=== PATIENT | female | born 1995 | race American Indian/Alaskan Native ===

== ENCOUNTER 2017-07-04 01:34 | Emergency (ER) | payer OTHER ==
[2017-07-04 02:46] VITALS: BP 112/67
[2017-07-04] MEDS ORDERED: TYLENOL ONE (02:51)
[2017-07-04] MEDS ORDERED: TYLENOL PO ONE (02:52)
[2017-07-04 04:24] LABS: Bilirubin,Urine NEG (Negative); Blood,Urine NEG (Negative); Color,Urine Yellow (Yellow); Mucus,Urine FEW /HPF; Nitrite,Urine NEG (Negative); Protein,Urine <15 mg/dL mg/dL (Negative)
--- NOTE | 2017-07-04 04:26 | Emergency Department Report ---
HPI - General Chief Complaint: Fever Time Seen by Provider: 07/04/17 04:25 - HPI HPI: This is a 22 -year-old female with a history of asthma presents to ED complaining of intermittent dry cough for the past days. Patient states her asthma usually flares up with Bad weather. Patient states she takes albuterol inhalers and has a nebulizer machine at home as needed for attacks. Patient states she's noticed a fever since yesterday. Patient denies chills, nausea, vomiting, abdominal pain, shortness of breath, chest pain, dizziness, headache or any other problems. ED Past Medical Hx - Past Medical History Previous Medical History?: Yes Hx Asthma: Yes - Surgical History Past Surgical History?: No - Social History Smoking Status: Former Smoker Substance Use Type: Alcohol, Marijuana - Medications Home Medications: Home Medications Medication Instructions Recorded Confirmed Last Taken Type Acetaminophen [Acetaminophen 8 650 mg PO Q6H #30 tablet.er 07/04/17 Unknown Rx Hour] Azithromycin [Zithromax] 250 mg PO DAILY #6 tablet 07/04/17 Unknown Rx Benzonatate [Tessalon Perles] 100 mg PO Q8HR #20 capsule 07/04/17 Unknown Rx guaiFENesin [Robitussin] 200 mg PO Q6HR #80 ml 07/04/17 Unknown Rx ED Review of Systems ROS: Stated complaint: ASTHMA; FEVER Other details as noted in HPI Physical Exam - Physical Exam Vital Signs: Vital Signs 07/04/17 07/04/17 02:39 02:55 Temperature 100 F H Pulse Rate 115 H Respiratory 18 18 Rate Blood Pressure 112/67 O2 Sat by Pulse 99 Oximetry Physical Exam: GENERAL: Alert and oriented x3, no apparent distress, Normal Gait, atraumatic. HEAD: Head is normocephalic and a-traumatic. NOSE: Nose symetrical, Nontender,Nares appeared normal. MOUTH:Mouth is well hydrated and without lesions. Tonsils nonerythematous or swollen, Uvula midline, Tongue not elevated. Mucous membranes are moist. Posterior pharynx clear, no exudate or lesions. Patent airways. NECK: Supple. Non edematous, No lymphadenopathy or thyromegaly. No C-spine tenderness LUNGS: Symetrical with respiration, mild wheezing, no rales or crackles, CTAB. No use of accessory muscles HEART: S1, S2 present, regular rate and rhythm without murmur, no rubs, no gallops. Non tender to palpation NEUROLOGIC: The patient is cooperative with no focal neurologic deficits. Cranial nerves SKIN: Warm and dry, No lesions, No ulceration or induration present. ED Course Vital Signs 07/04/17 07/04/17 02:39 02:55 Temperature 100 F H Pulse Rate 115 H Respiratory 18 18 Rate Blood Pressure 112/67 O2 Sat by Pulse 99 Oximetry ED Medical Decision Making - Medical Decision Making 22-year-old presents with bronchitis with asthma. ED course: Patient received prednisone and albuterol treatment in ED. Vital signs are normal. Patient is in no acute or respiratory distress. Patient had an uneventful ED stay. Patient sent home with antibiotics for prophylaxis. She is speaking in normal sentences. She is resting in the ED room comfortably I discussed the patient will follow up with her primary care physician. Continue the use of medication at home as needed Fever resolved during her ED stay. I discussed the patient and she has any worsening symptoms to return to ED immediately. Patient is satting on 99% room air. Critical care attestation.: If time is entered above; I have spent that time in minutes in the direct care of this critically ill patient, excluding procedure time. ED Disposition Clinical Impression: Bronchitis Asthma Qualifiers: Asthma severity: mild Asthma persistence: intermittent Asthma complication type : uncomplicated Qualified Code(s): J45.20 - Mild intermittent asthma, uncomplicated Disposition: - TO HOME OR SELFCARE Is pt being admited?: No Does the pt Need Aspirin: No Condition: Stable Instructions: Asthma (ED), Acute Bronchitis (ED), Chronic Bronchitis (ED) Additional Instructions: Make sure to follow up with the primary care physician as discussed. Take all your medications as you've been prescribed. If you have any worsening symptoms or develop new symptoms please return to ED immediately. Prescriptions: Acetaminophen [Acetaminophen 8 Hour] 650 mg PO Q6H #30 tablet.er Azithromycin [Zithromax] 250 mg PO DAILY #6 tablet Benzonatate [Tessalon Perles] 100 mg PO Q8HR #20 capsule guaiFENesin [Robitussin] 200 mg PO Q6HR #80 ml Referrals: PRIMARY CARE, [Primary Care Provider] - 3-5 Days Forms: Accompanied Note, Work/School Release Form(ED) Time of Disposition: 05:25
[2017-07-04 04:27] LABS: HCG Qualitative,Urine Negative (Negative)
[2017-07-04] MEDS ORDERED: PROVENTIL IH ONE (04:52)
[2017-07-04] MEDS ORDERED: DELTASONE PO ONE (04:52)
== END 2017-07-04 06:10 | disposition home or self-care (01) ==
LOC: ED 01:34
DX: J45.20 Mild intermittent asthma, uncomplicated (principal); J40 Bronchitis, not specified as acute or chronic; Z87.891 Personal history of nicotine dependence; F12.10 Cannabis abuse, uncomplicated
CPT/HCPCS: 81001; 81025; 94640; 99283; J7512

== ENCOUNTER 2018-12-07 22:16 | Emergency (ER) | payer OTHER ==
[2018-12-08 00:22] LABS: HCG Qualitative,Urine Negative (Negative)
[2018-12-08 01:53] VITALS: BP 119/61
--- NOTE | 2018-12-08 02:16 | XRay Report ---
PROCEDURE: Chest. TECHNIQUE: PA and lateral chest radiographs were obtained. HISTORY: Chest pain. COMPARISONS: None. FINDINGS: The heart and mediastinum appear normal. The lungs are clear and well expanded. There are no pleural effusions. The soft tissues are unremarkable. There is a mild thoracolumbar scoliosis. IMPRESSION: No evidence of acute disease. This document is electronically signed by Victor Hugo Morton MD., December 08 2018 02:14:37 AM ET
[2018-12-08] MEDS ORDERED: IBUPROFEN PO ONE (02:25)
[2018-12-08] MEDS ORDERED: PEPCID PO ONE (02:25)
--- NOTE | 2018-12-08 02:29 | Emergency Department Report ---
ED Chest Pain HPI - General Chief Complaint: Chest Pain Stated Complaint: CHEST/ABD PAIN Time Seen by Provider: 12/08/18 01:47 Source: patient, RN notes reviewed Mode of arrival: Ambulatory Limitations: No Limitations - History of Present Illness Initial Comments: This is a pleasant 23-year-old female. The patient is not known to this provider previously. She does not have any chronic medical with perhaps the exception of asthma or reactive airway disease. Patient presents to the emergency room with the complaint of nontraumatic central chest wall pain. The pain is intermittent and present for the past 2 days. It radiates to the patient's "left boob." The pain is achy, and increases with palpation and decreases with rest, and it decreases with ibuprofen. The patient currently denies headache, neck pain, abdominal pain, exertional shortness of breath, vomiting, diaphoresis, leg pain, leg swelling. She denies DVT, pulmonary embolism risk factors, with the exception of recent road trip last month to [place], where she reports that she took frequent gas brakes and better rate. There is no shortness of breath, and there is no post erior leg pain, leg swelling. MD Complaint: chest pain -: Gradual, days(s) Onset: during rest Pain Location: other Pain Radiation: other Severity scale (0 -10): 9 Quality: aching Consistency: intermittent Improves With: other Worsens With: other Context: recent travel re: denies: nausea, vomting, diaphoresis, dyspnea, sense of impending doom Other Symptoms: denies: cough, fever, syncope, rash, acid taste in mouth, leg swelling, palpitations, burping Aspirin use within the Past 7 Days: (0) No - Related Data On Oral Contraceptives: No Previous Rx's Medication Instructions Recorded Last Taken Type Acetaminophen [Acetaminophen 8 650 mg PO Q6H #30 tablet.er 07/04/17 Unknown Rx Hour] Azithromycin [Zithromax] 250 mg PO DAILY #6 tablet 07/04/17 Unknown Rx Benzonatate [Tessalon Perles] 100 mg PO Q8HR #20 capsule 07/04/17 Unknown Rx guaiFENesin [Robitussin] 200 mg PO Q6HR #80 ml 07/04/17 Unknown Rx Famotidine [Pepcid] 20 mg PO BID #30 tablet 12/08/18 Unknown Rx Ibuprofen [Motrin] 600 mg PO Q8H PRN #30 tablet 12/08/18 Unknown Rx Allergies Allergy/AdvReac Type Severity Reaction Status Date / Time No Known Allergies Allergy Verified 07/04/17 02:58 Heart Score - HEART Score History: Slightly suspicious EKG: Normal Age: < 45 Risk factors: No known risk factors Troponin: < normal limit (troponin is not sent, however, the patient in my pain is very low risk otherwise, does not require laboratory evaluation) HEART Score: 0 - Critical Actions Critical Actions: 0-3 pts:0.9-1.7%risk of adverse cardiac event.Candidate for discharge ED Review of Systems ROS: Stated complaint: CHEST/ABD PAIN Other details as noted in HPI Comment: All other systems reviewed and negative Cardiovascular: chest pain ED Past Medical Hx - Past Medical History Previous Medical History?: Yes Hx Asthma: Yes - Surgical History Past Surgical History?: No - Social History Smoking Status: Never Smoker Substance Use Type: None - Medications Home Medications: Home Medications Medication Instructions Recorded Confirmed Last Taken Type Acetaminophen [Acetaminophen 8 650 mg PO Q6H #30 tablet.er 07/04/17 Unknown Rx Hour] Azithromycin [Zithromax] 250 mg PO DAILY #6 tablet 07/04/17 Unknown Rx Benzonatate [Tessalon Perles] 100 mg PO Q8HR #20 capsule 07/04/17 Unknown Rx guaiFENesin [Robitussin] 200 mg PO Q6HR #80 ml 07/04/17 Unknown Rx Famotidine [Pepcid] 20 mg PO BID #30 tablet 12/08/18 Unknown Rx Ibuprofen [Motrin] 600 mg PO Q8H PRN #30 tablet 12/08/18 Unknown Rx ED Physical Exam - General Limitations: No Limitations General appearance: alert, in no apparent distress - Head Head exam: Present: atraumatic, normocephalic - Eye Eye exam: Present: normal appearance, EOMI. Absent: nystagmus - ENT ENT exam: Present: normal exam, normal orophraynx, mucous membranes moist, normal external ear exam - Neck Neck exam: Present: normal inspection, full ROM. Absent: tenderness, meningismus - Respiratory Respiratory exam: Present: normal lung sounds bilaterally, chest wall tenderness, other (chaperoned by factory helper Klever Vizcarra). Absent: respiratory distress, wheezes, rales, rhonchi, stridor - Cardiovascular Cardiovascular Exam: Present: regular rate, normal rhythm, normal heart sounds. Absent: bradycardia, tachycardia, irregular rhythm, systolic murmur, diastolic murmur, rubs, gallop - GI/Abdominal GI/Abdominal exam: Present: soft. Absent: distended, tenderness, guarding, candy ound, rigid, pulsatile mass - Extremities Exam Extremities exam: Present: normal inspection, full ROM, other (2+ pulses noted in the bilateral upper, lower extremities. Compartments soft. No long bony tenderness. The pelvis is stable.). Absent: pedal edema, joint swelling, calf tenderness - Back Exam Back exam: Present: normal inspection, full ROM. Absent: tenderness, CVA tenderness (R), CVA tenderness (L), paraspinal tenderness, vertebral tenderness - Neurological Exam Neurological exam: Present: alert, oriented X3, normal gait, other (Extraocular movements intact. Tongue midline. No facial droop. Facial sensation intact to light touch in the V1, V2, V3 distribution bilaterally. 5 and 5 strength in 4 extremities.. Sensation is intact to light touch in 4 extremities.). Absent: motor sensory deficit - Psychiatric Psychiatric exam: Present: normal affect, normal mood - Skin Skin exam: Present: warm, dry, intact, normal color. Absent: rash ED Course Vital Signs 12/07/18 12/08/18 22:47 01:50 Temperature 98.7 F 99.4 F Pulse Rate 83 81 Respiratory 18 19 Rate Blood Pressure 109/64 Blood Pressure 119/61 [Right] O2 Sat by Pulse 100 100 Oximetry MAYNOR score - Maynor Score Age > 65: (0) No Aspirin use within the Past 7 Days: (0) No 3 or more CAD Risk Factors: (0) No 2 or more Angina events in past 24 hrs: (0) No Known CAD with more than 50% Stenosis: (0) No Elevated Cardiac Markers: (0) No ST Deviation Greater than 0.5mm: (0) No MAYNOR Score: 0 ED Medical Decision Making - Lab Data Vital Signs 12/07/18 12/08/18 22:47 01:50 Temperature 98.7 F 99.4 F Pulse Rate 83 81 Respiratory 18 19 Rate Blood Pressure 109/64 Blood Pressure 119/61 [Right] O2 Sat by Pulse 100 100 Oximetry Lab Results 12/07/18 Range/Units 23:55 Urine HCG, Qual Negative (Negative) - EKG Data -: EKG Interpreted by Me EKG shows normal: sinus rhythm, axis, intervals, QRS complexes, ST-T waves Rate: normal - EKG Data When compared to previous EKG there are: previous EKG unavailable Interpretation: normal EKG - Radiology Data Radiology results: image reviewed interpreted by me: X-ray of the chest is negative for acute disease. - Medical Decision Making Differential diagnosis, including but not limited to: GERD, gastritis, costochondritis, hiatal hernia Assessment and plan: 23-year-old female with reproducible chest wall pain. She is not tachycardic, she is not tachypneic , x-ray of the chest unremarkable, EKG unremarkable, low risk by well's criteria, perc negative Noted to be walking around the department in no acute distress. Typing and playing on a cellular phone during her history and physical. Patient does not appear to have an emergent medical condition at this time. Appropriate guidance and counseling provided. Please note that cardiac markers were not sent , however, as this chart as documented under the chest pain template, MAYNOR score and heart score sections required documentation of enzymes. The these particular sections were documented as having negative enzymes for the purposes of chart completion, but as previously stated, the patient in my opinion is very unlikely to be experiencing obstructive coronary artery disease, and at this point does not appear to require laboratory evaluation Critical care attestation.: If time is entered above; I have spent that time in minutes in the direct care of this critically ill patient, excluding procedure time. ED Disposition Clinical Impression: Chest wall pain Disposition: DC-01 TO HOME OR SELFCARE Is pt being admited?: No Does the pt Need Aspirin: No Condition: Stable Instructions: Chest Pain (ED) Additional Instructions: Take the pain medications as needed/directed. Rest, avoid heavy lifting, and avoid strenuous physical activities. Follow up with your primary care doctor as scheduled within the week. Return to the emergency room right away with new, worsening or different symptoms not present on the initial emergency room evaluation. Referrals: ROCK CANTU MD [Primary Care Provider] - 3-5 Days
== END 2018-12-08 02:51 | disposition home or self-care (01) ==
LOC: ED 22:16
DX: R07.89 Other chest pain (principal); J45.909 Unspecified asthma, uncomplicated; Z79.899 Other long term (current) drug therapy
CPT/HCPCS: 71046; 81025; 93005; 93010; 99284